=== PATIENT | female | born 2000 | race Two or more races ===

== ENCOUNTER 2019-08-13 15:45 | Emergency (ER) | payer OTHER ==
[~2019-08-13] VITALS: Ht 167.6 cm; Wt 88.0 kg
[2019-08-13] MEDS ORDERED: TOPAMAX50 MG (16:01)
== END 2019-08-13 18:09 | disposition home or self-care (01) ==
LOC: ER 15:45
DX: L30.8 Other specified dermatitis (principal)

== ENCOUNTER 2019-09-10 13:38 | Emergency (ER) | payer OTHER ==
[~2019-09-10] VITALS: Ht 167.6 cm; Wt 88.0 kg
[~2019-09-10 13:38] MED LIST: TOPAMAX50 MG
== END 2019-09-10 17:19 | disposition home or self-care (01) ==
LOC: ER 13:38
DX: S93.492A Sprain of other ligament of left ankle, initial encounter (principal); W01.198A Fall on same level from slipping, tripping and stumbling with subsequent striking against other object, initial encounter; Y93.01 Activity, walking, marching and hiking; Y92.214 College as the place of occurrence of the external cause; Y99.8 Other external cause status